=== PATIENT | female | born 1960 | race African-American/Black ===

== ENCOUNTER → 2019-01-17 | Outpatient (CLI) | payer OTHER ==
[~2019-01-17] MED LIST: IBUPROFEN 800800 MG PO; KEFLEX500 MG PO; LISINOPRIL20 MG PO; PRISTIQ50 MG PO
== END ==
LOC: CAT 15:45
DX: Z13.6 Encounter for screening for cardiovascular disorders (principal); E78.00 Pure hypercholesterolemia, unspecified; I25.10 Atherosclerotic heart disease of native coronary artery without angina pectoris